=== PATIENT | male | born 1995 | race Hispanic/Latino ===

== ENCOUNTER 2022-03-25 10:25 | Emergency (ER) | payer OTHER ==
[~2022-03-25] VITALS: Ht 167.6 cm; Wt 86.4 kg
[2022-03-25] MEDS ORDERED: PERCOCET 5MG/325MG TAB PO ONE (12:10)
[2022-03-25] MEDS ORDERED: AUGMENTIN 875 MG TAB PO ONE (12:10)
[2022-03-25] MEDS ORDERED: BENZOIN TINCTURE 60ML BTL TOP ONE (12:15)
[2022-03-25] MEDS ORDERED: HYDR-4571 PO (13:19)
[2022-03-25] MEDS ORDERED: AMOX875T2 PO (13:19)
[2022-03-25 13:39] VITALS: BP 147/91
== END 2022-03-25 13:42 | disposition home or self-care (01) ==
LOC: EDBD 10:25 → M ED 10:25
DX: S81.812A Laceration without foreign body, left lower leg, initial encounter (principal); S61.412A Laceration without foreign body of left hand, initial encounter; S80.11XA Contusion of right lower leg, initial encounter; W54.0XXA Bitten by dog, initial encounter; Y92.009 Unspecified place in unspecified non-institutional (private) residence as the place of occurrence of the external cause; Z79.2 Long term (current) use of antibiotics; Z79.899 Other long term (current) drug therapy

== ENCOUNTER 2022-03-27 12:41 | Emergency (ER) | payer OTHER ==
[~2022-03-27] VITALS: Ht 167.6 cm; Wt 92.8 kg
[~2022-03-27 12:41] MED LIST: AMOX875T2 PO; HYDR-4571 PO
[2022-03-27 12:42] VITALS: BP 137/74
== END 2022-03-27 16:05 | disposition home or self-care (01) ==
LOC: M ED 12:41
DX: S61.442A Puncture wound with foreign body of left hand, initial encounter (principal); W54.0XXA Bitten by dog, initial encounter; Z79.2 Long term (current) use of antibiotics

== ENCOUNTER → 2022-03-28 | Outpatient (CLI) | payer OTHER | LOC: M SOG 13:22 | PROVIDERS: ATTEND Orthopaedic Surgery Hand Surgery | DX: M79.642 Pain in left hand (principal) ==